=== PATIENT | female | born 1985 | race Caucasian/White ===

== ENCOUNTER 2022-09-28 16:48 | Emergency (ER) | payer BC ==
[~2022-09-28] VITALS: Ht 172.7 cm; Wt 72.6 kg
[2022-09-28 17:08] VITALS: BP_SYST 122
--- NOTE | 2022-09-28 18:10 | NUR ---
MD AMEZCUA IN TRIAGE FOR MSE
[2022-09-28] MEDS ORDERED: OMEPRAZOLE Non-Formulary 20 MG CAPSULE.DR PO ONE (18:30)
[2022-09-28] MEDS ORDERED: PANTOPRAZOLE SODIUM 40 MG TAB PO ONE ×2 (18:45→20:57)
[2022-09-28] MEDS ORDERED: PANTOPRAZOLE SODIUM 40 MG/VIAL (PROTONIX) IVP ONE (19:15)
[2022-09-28] MEDS ORDERED: NACL 0.9% 1,000 ML IV ONE (19:15)
[2022-09-28] MEDS ORDERED: ONDANSETRON HCL 4 MG/2 ML VIAL IVP ONE (19:15)
[2022-09-28 19:23] LABS: CALCIUM 9.6 mg/dL (8.4-11.0); CREATININE 0.88 mg/dL (0.55-1.30)
[2022-09-28 19:29] LABS: ALBUMIN 3.8 g/dL (3.4-4.8); BASOPHILS % (AUTO) 0.1 % (0.0-2.0); EOSINOPHILS # (AUTO) 0.1 K/uL (0.0-0.4); EOSINOPHILS % (AUTO) 0.5 % (0.0-4.0); HEMATOCRIT 46.1 % (36-48); HEMOGLOBIN 15.6 g/dL (12.0-16.0); LYMPHOCYTES # (AUTO) 2.3 K/uL (1.0-5.5); LYMPHOCYTES % (AUTO) 21.6 % (20.5-51.5); MEAN CORPUSCULAR HEMOGLOBIN 29 pg (27-31); MEAN CORPUSCULAR HGB CONC 34 % (32-36); MEAN CORPUSCULAR VOLUME 86 fL (79.0-98.0); MONOCYTES # (AUTO) 0.4 K/uL (0.0-1.0); NEUTROPHILS # (AUTO) 7.7 K/uL (1.8-7.7); NEUTROPHILS % (AUTO) 73.8 % (40.0-70.0); PLATELET COUNT (AUTO) 215 K/uL (130-430); RED BLOOD CELL COUNT(AUTO) 5.35 MIL/uL (4.2-6.2); RED CELL DISTRIBUTION WIDTH 12.5 % (9.0-15.0); TOTAL BILIRUBIN 0.8 mg/dL (0.0-1.0); WHITE BLOOD COUNT (AUTO) 10.5 K/uL (4.8-10.8)
--- NOTE | 2022-09-28 20:53 | NUR ---
Patient to ER bed 5 to gown for evaluation. Side rails up. Report given to MADELINE PUGA(REG).
[2022-09-28] MEDS ORDERED: METOCLOPRAMIDE HCL 10 MG/2 ML VIAL IM ONE (21:00)
[2022-09-28] MEDS ORDERED: ONDA-8 TL (22:06)
[2022-09-28] MEDS ORDERED: IBUP-1971 PO (22:06)
--- NOTE | 2022-09-28 22:43 | NUR ---
Patient given written and verbal discharge instructions and verbalizes understanding. ER MD discussed with patient the results and treatment provided. Patient in stable condition. ID arm band removed. Rx of given. Patient educated on pain management and to follow up with PMD. Pain Scale 3. Opportunity for questions provided and answered. Medication side effect fact sheet provided. STEADY GAIT TO LOBBY NOTED.
[2022-09-28 22:45] VITALS: BP_SYST 120
== END 2022-09-28 22:45 | disposition home or self-care (01) ==
LOC: SED 16:48
DX: K52.9 Noninfective gastroenteritis and colitis, unspecified (principal); R10.13 Epigastric pain; R10.33 Periumbilical pain; Z79.899 Other long term (current) drug therapy
CPT/HCPCS: 99284; 74176; 96374; 76705; 80053; 83690; 85025; 36415; 76376; 81002; 81025; J2765